=== PATIENT | female | born 1985 | race African-American/Black ===

== ENCOUNTER 2018-05-10 15:48 | Emergency (ER) | payer MEDICAID ==
[~2018-05-10] VITALS: Ht 175.3 cm; Wt 55.0 kg
[2018-05-10] MEDS ORDERED: ALBUTEROL (0.083%) 2.5MG/3ML NEB HHN STA (20:48)
[2018-05-10] MEDS ORDERED: PREDNISONE 20MG TABLET PO STA (20:48)
[2018-05-10] MEDS ORDERED: IPRATROPIUM BROMIDE (0.02%) 0.5MG/2.5ML NEB HHN STA (20:48)
[2018-05-10 23:00] VITALS: BP 127/86
== END 2018-05-10 23:00 | disposition home or self-care (01) ==
LOC: ER 17:27
DX: J45.901 Unspecified asthma with (acute) exacerbation (principal); F12.10 Cannabis abuse, uncomplicated; R03.0 Elevated blood-pressure reading, without diagnosis of hypertension; F17.210 Nicotine dependence, cigarettes, uncomplicated; Z88.0 Allergy status to penicillin; Z71.6 Tobacco abuse counseling
CPT/HCPCS: 94640; 99285; 99406; J7512; J7611; Z7610